=== PATIENT | male | born 1940 | race Caucasian/White ===

== ENCOUNTER 2016-06-02 05:31 | Observation (INO) | payer MEDICARE, MEDICAID ==
[~2016-06-02 05:31] MED LIST: ACETAMINOPHEN325 M2 PO; ACTOS15 M1 PO; ACTOS30 M1 PO; AMARYL4 M1 PO; ANTI-ITCH28 GM TP; ARICEPT10 M2 PO; ATIVAN0.5 M1 PO; BISCOLAX10 MG PR; CLONAZEPAM0.5 M2 PO; CLONAZEPAM1 M2 PO; COUMADIN2.5 M1 PO; COUMADIN5 M2 PO; COZAAR25 M1 PO; DONEPEZIL HCL10 M2 PO; ENEMA133 M4 PR; FLOMAX0.4 M1 PO; GLIMEPIRIDE4 M1 PO; INTERDRY TP; KLONOPIN0.5 M1 PO; KLONOPIN1 M1 PO; LAMICTAL100 M2 PO; LAMICTAL25 M2 PO; LASIX40 M1 PO; LORAZEPAM0.5 M1 PO; LOSARTAN POTASS25 M1 PO; MILK OF MAGNESIA PO; MIRTAZAPINE7.5 M1 PO; MUSCLE RUB CRE113 GM TP; NAMENDA XR PO; NAMENDA XR21 M1 PO; NAMENDA XR28 M1 PO; NYSTOP60 GM EXT; OLANZAPINE15 M1 PO; OXYGEN; PANTOPRAZOLE SO40 M3 PO; POTASSIUM CHLO10 ME1 PO; POTASSIUM CHLO10 ME2 PO; PROTONIX40 M2 PO; REFRESH TEARS15 M1 EACH EYE; REFRESH TEARS15 M1 OP; SENNA PLUS TAB1 EAC1 PO; SERTRALINE HCL50 M4 PO; SIMVASTATIN10 M1 PO; SWEEN CREAM85 GM TP; TAMSULOSIN HCL0.4 M1 PO; TOPROL XL25 M1 PO; TYLENOL325 M2 PO; VITAMIN B-121000 MC1 PO; VITAMIN B12 PO; WARFARIN SODIUM PO; WARFARIN SODIUM6 M1 PO; ZOCOR10 M1 PO; ZOLOFT50 M1 PO; ZYPREXA10 M1 PO; ZYPREXA2.5 M1 PO; [UNRECOGNIZED DRUG - OTHER] TP; [UNRECOGNIZED DRUG - REMARK]
[2016-06-02] MEDS ORDERED: DEPAKOTE SPRIN125 M1 PO (05:59)
[2016-06-02] MEDS ORDERED: NAMENDA5 M1 PO (06:03)
[2016-06-02] MEDS ORDERED: REGLAN10 M2 PO (06:04)
[2016-06-02] MEDS ORDERED: FLOMAX0.4 M1 PO (06:07)
[2016-06-02] MEDS ORDERED: AMBIEN5 M1 PO (06:08)
[2016-06-02 06:10] LABS: BASO % 0.9 % (0-2); BASO ABSOLUTE COUNT 0.1 tho/cmm (0.0-0.2); EOS % 3.4 % (0-7); EOSINOPHIL ABSOLUTE COUNT 0.2 tho/cmm (0.0-0.7); HCT-HEMATOCRIT 43.3 % (36.0-53.5); HGB-HEMOGLOBIN 14.6 gm/dl (13.5-17.0); IMMATURE GRANULOCYTES ABSOLUTE 0.01 tho/cmm (0-0.03); IMMATURE GRANULOCYTES PERCENT 0.2 % (0-0.3); LYMPH % 39.3 % (20-45); LYMPH ABSOLUTE COUNT 2.5 tho/cmm (0.8-4.5); MCH (MEAN CORPUSCULAR HGB) 31.3 pg (28.0-32.0); MCHC MEAN CORPUSCULAR HGB CONC 33.7 % (32.0-36.0); MCV (MEAN CELL VOLUME) 92.9 fl (82.0-96.0); MEAN PLATELET VOLUME 10.9 cmc (9.4-12.4); NEUTROPHIL ABSOLUTE COUNT 2.6 tho/cmm (1.6-8.0); NEUTROPHIL-AUTOMATED 2.6 tho/cmm (1.6-8.0); NEUTROPHILS % 40.2 % (40-80); PLATELET COUNT 160 tho/cmm (150-450); RED BLOOD COUNT 4.66 mil/cmm (4.40-5.70); RED CELL DISTRIBUTION WIDTH 13.8 % (12.4-16.4); WHITE BLOOD COUNT 6.4 tho/cmm (4.0-10.0)
[2016-06-02 06:16] LABS: INR 1.8 INR (0.9-1.1); PROTHROMBIN TIME 21.2 SECONDS (9.0-13.6)
[2016-06-02 06:40] LABS: ALB/GLOB RATIO 0.6 (0.8-2.0); ALBUMIN 2.7 g/dl (3.5-5.0); ALKALINE PHOSPHATASE 60 U/L (33-138); ALT/SGPT 15 U/L (12-78); ANION GAP 11 mmol/L (0-20); AST/SGOT 13 U/L (10-40); BILIRUBIN,DIRECT <0.1 mg/dl (0.0-0.3); BILIRUBIN,INDIRECT 0.2 mg/dL (0.0-1.0); BILIRUBIN,TOTAL 0.3 mg/dl (0.0-1.5); BLOOD UREA NITROGEN 14 mg/dl (6-24); CALCIUM 8.8 mg/dl (8.5-10.5); CARBON DIOXIDE-VENOUS 31 mmol/L (22-32); CHLORIDE 104 mmol/l (96-110); GLUCOSE 162 mg/dL (70-110); LIPASE 138 U/L (73-393); MAGNESIUM 2.2 mg/dl (1.8-2.6); SODIUM 142 mmol/L (135-145); eGFR VALUE FOR BLACK 75 mL/Min
[2016-06-02] MEDS ORDERED: MAALOX MAXIMUM355 M1 PO (08:12)
[2016-06-02 12:26] LABS: CHOLESTEROL 178 mg/dl (120-200); HDL CHOLESTEROL 45 mg/dl (40-60); LDL CHOLESTEROL 103 mg/dl (0-99); VLDL 30 mg/dl (0-30)
[2016-06-02 12:27] LABS: TRIGLYCERIDES 150 mg/dl (<149)
[2016-06-03] MEDS ORDERED: NITROGLYCERIN0.4 M2 SL (10:18)
[2016-06-03] MEDS ORDERED: ASPIRIN EC81 MG PO (10:19)
[2016-06-03] MEDS ORDERED: COREG3.125 M1 PO (10:19)
== END 2016-06-03 11:18 | disposition other institution (70) ==
LOC: EDMED 05:31 → EMR2 09:37 → CAR1 11:22
PROVIDERS: Emergency Medicine; Physician Assistant; ADMIT Internal Medicine Cardiovascular Disease
DX: R07.89 Other chest pain (principal); F01.50 Vascular dementia, unspecified severity, without behavioral disturbance, psychotic disturbance, mood disturbance, and anxiety; E11.9 Type 2 diabetes mellitus without complications; I10 Essential (primary) hypertension; E78.5 Hyperlipidemia, unspecified; I25.10 Atherosclerotic heart disease of native coronary artery without angina pectoris; I25.5 Ischemic cardiomyopathy; I49.5 Sick sinus syndrome; I48.0 Paroxysmal atrial fibrillation; F32.9 Major depressive disorder, single episode, unspecified; F41.9 Anxiety disorder, unspecified; K21.9 Gastro-esophageal reflux disease without esophagitis; Z79.01 Long term (current) use of anticoagulants; Z79.84 Long term (current) use of oral hypoglycemic drugs; Z79.899 Other long term (current) drug therapy; Z95.0 Presence of cardiac pacemaker; Z95.1 Presence of aortocoronary bypass graft; Z90.49 Acquired absence of other specified parts of digestive tract; Z90.2 Acquired absence of lung [part of]
CPT/HCPCS: G0378; J1815